=== PATIENT | male | born 1965 | race Caucasian/White ===

== ENCOUNTER 2021-11-28 20:53 | Inpatient (IN) ==
[2021-11-29 00:18] LABS: Estimated Average Glucose 128 mg/dl; Hemoglobin A1C 6.1 %
[2021-11-29] MEDS ORDERED: Ondansetron 4 MG/2 ML VIAL IVP PRN (00:26)
[2021-11-29] MEDS ORDERED: Naloxone 0.4 MG/ML INJ IVP PRN ×2 (00:26→16:38)
[2021-11-29 00:30] LABS: Alanine Aminotransferase 14 Units/L (7-52); Albumin 3.6 g/dL (3.5-5.7); Albumin/Globulin Ratio 1.1 (1.1-2.2); Alkaline Phosphatase 86 Units/L (34-104); Aspartate Amino Transferase 15 Units/L (13-39); BUN/Creatinine Ratio 20 (6-26); Bilirubin,Total 0.4 mg/dL (0.3-1.0); Blood Urea Nitrogen 16 mg/dL (6-20); Calcium 9.3 mg/dL (8.6-10.3); Carbon Dioxide 26 mEq/L (23-29); Chloride 101 mEq/L (98-107); Globulin 3.4 g/dL (2.4-3.5); Glucose 99 mg/dL (70-105); Osmolality,Calculated 291 (280-300); Potassium 3.9 mEq/L (3.5-5.1); Sodium 140 mEq/L (136-145)
[2021-11-29 00:32] LABS: Albumin 3.6 g/dL (3.5-5.7); Albumin/Globulin Ratio 1.1 (1.1-2.2); Bilirubin,Indirect 0.4 mg/dL (0.0-1.0); Bilirubin,Total 0.4 mg/dL (0.3-1.0); Chol/HDL Ratio 2.1 (0-4.9); Globulin 3.4 g/dL (2.4-3.5); Magnesium 1.9 mg/dL (1.6-2.6)
[2021-11-29 00:45] LABS: Basophils # 0.1 K/mcL (0.0-0.2); Basophils % 0.5 %; Eosinophils # 0.1 K/mcL (0.0-0.6); Eosinophils % 1.5 %; Hematocrit 38.6 % (37.5-50.1); Hemoglobin 12.5 g/dL (12.9-16.9); Immature Granulocytes % 0.2 % (0-4); Lymphocytes # 2.8 K/mcL (0.6-4.6); Lymphocytes % 29.6 %; Mean Corpuscular HGB Conc 32.4 g/dL (31.6-35.5); Mean Corpuscular Hemoglobin 27.1 pg (28.0-33.3); Mean Corpuscular Volume 83.5 fL (83.0-100.0); Mean Platelet Volume 9.2 fL (9.4-12.4); Monocytes # 0.7 K/mcL (0.0-1.3); Monocytes % 7.9 %; Neutrophils # 5.7 K/mcL (1.6-8.9); Platelet Count 214 K/mcL (140-400); Red Blood Count 4.62 M/mcL (4.19-5.50); Red Cell Distribution Width 15.9 % (11.5-14.5); Segmented Neutrophils % 60.3 %; White Blood Count 9.4 K/mcL (4.3-11.1)
[2021-11-29] MEDS: 0.9 % Sodium Chloride 1,000 ML IVC SCH ×2 (00:53→14:44)
[2021-11-29] MEDS ORDERED: Clindamycin 600 MG/50 ML 600 MG/50 ML IV.SOLN IVPB SCH (00:55)
[2021-11-29 04:46] LABS: Influenza A PCR Negative (Negative); Influenza B PCR Negative (Negative); Resp. Syncytial Virus PCR Negative (Negative)
[2021-11-29 04:47] LABS: SARS-CoV-2 by PCR (In House) Negative (Negative)
[2021-11-29] MEDS ORDERED: Vancomycin 1,250 MG/262.5 ML IV.SOLN IVPB ONE (06:07)
[2021-11-29] MEDS: Gabapentin 300 MG CAPSULE PO SCH ×3 (08:51→19:30)
[2021-11-29] MEDS: ALPRAZolam 1 MG TABLET PO PRN ×2 (08:53→19:30)
[2021-11-29] MEDS ORDERED: cefTRIAXone 2,000 MG in 0.9 % Sodium Chloride Mini Bag 100 ML IVPB SCH (09:00)
[2021-11-29] MEDS: Tiotropium 10 INH DOSE IH SCH (09:45)
[2021-11-29 13:56] LABS: Amphetamine Screen,Urine Negative ng/mL (Cutoff=1000); Barbiturate Screen,Urine Negative ng/mL (Cutoff=200); Benzodiazepines Screen,Urine Negative ng/mL (Cutoff=200); Cannabinoid Screen,Urine Negative ng/mL (Cutoff = 50); Cocaine Screen,Urine Negative ng/mL (Cutoff= 300); Opiate Screen,Urine Negative ng/mL (Cutoff=300); Phencyclidine Screen,Urine Negative ng/mL (Cutoff=25)
[2021-11-29] MEDS: *HR* OxyCODONE Immed Rel 5 MG TABLET PO PRN ×2 (17:03→23:21)
[2021-11-29] MEDS: Gabapentin 400 MG CAPSULE PO SCH (19:30)
[2021-11-30 05:37] LABS: Hematocrit 36.3 % (37.5-50.1); Hemoglobin 11.4 g/dL (12.9-16.9); Mean Corpuscular HGB Conc 31.4 g/dL (31.6-35.5); Mean Corpuscular Hemoglobin 26.8 pg (28.0-33.3); Mean Corpuscular Volume 85.4 fL (83.0-100.0); Mean Platelet Volume 9.2 fL (9.4-12.4); Platelet Count 185 K/mcL (140-400); Red Blood Count 4.25 M/mcL (4.19-5.50); Red Cell Distribution Width 15.9 % (11.5-14.5); White Blood Count 5.6 K/mcL (4.3-11.1)
[2021-11-30 06:00] LABS: % Iron Saturation 9 % (20-55); BUN/Creatinine Ratio 18 (6-26); Blood Urea Nitrogen 14 mg/dL (6-20); Calcium 8.8 mg/dL (8.6-10.3); Carbon Dioxide 27 mEq/L (23-29); Chloride 107 mEq/L (98-107); Glucose 111 mg/dL (70-105); Iron 33 mcg/dL (65-175); Osmolality,Calculated 291 (280-300); Potassium 3.8 mEq/L (3.5-5.1); Sodium 140 mEq/L (136-145); Transferrin 254 mg/dL (203-362)
[2021-11-30] MEDS: *HR* OxyCODONE Immed Rel 5 MG TABLET PO PRN ×3 (06:01→20:13)
[2021-11-30 06:13] LABS: Ferritin 17 ng/mL (20-250)
[2021-11-30 07:37] LABS: Hepatitis B Surface Antigen Nonreactive (Nonreactive)
[2021-11-30 08:07] LABS: Hepatitis B Core IgM Nonreactive (Nonreactive)
[2021-11-30 08:08] LABS: Hepatitis A Antibody IgM Nonreactive (Nonreactive)
[2021-11-30] MEDS: ALPRAZolam 1 MG TABLET PO PRN ×2 (08:20→16:21)
[2021-11-30] MEDS: Gabapentin 300 MG CAPSULE PO SCH (08:52)
[2021-11-30] MEDS: Gabapentin 400 MG CAPSULE PO SCH ×3 (08:52→20:14)
[2021-11-30] MEDS ORDERED: Patient Taking Own Medication 1 EACH OP SCH (09:00)
[2021-11-30] MEDS ORDERED: LAMIVUDI PO SCH (09:00)
[2021-11-30] MEDS ORDERED: ABACAVIR PO SCH (09:00)
[2021-11-30] MEDS ORDERED: DOLUTEGRAVIR PO SCH (09:00)
[2021-11-30] MEDS ORDERED: *HR* Dextrose 50 % in Water (Syg) 50 ML SYRINGE IVP ONE ×2 (09:48→10:00)
[2021-11-30] MEDS: Tiotropium 10 INH DOSE IH SCH (10:11)
[2021-11-30 10:44] LABS: Hepatitis C Virus Antibody Reactive (Nonreactive)
[2021-11-30] MEDS: Cyanocobalamin (B-12) 1,000 MCG/ML VIAL SQ SCH (13:22)
[2021-11-30] MEDS: Iron Sucrose Complex 250 MG in 0.9 % Sodium Chloride 250 ML IVPB SCH (13:22)
[2021-11-30] MEDS: cefTRIAXone 2,000 MG in 0.9 % Sodium Chloride 20 ML IVP SCH (13:23)
[2021-11-30] MEDS: LAMIVUDI PO SCH (16:09)
[2021-11-30] MEDS: DOLUTEGRAVIR PO SCH (16:09)
[2021-11-30] MEDS: ABACAVIR PO SCH (16:09)
[2021-11-30] MEDS: Nicotine 21 MG PATCH.TD24 TD SCH (18:38)
[2021-12-01] MEDS: ALPRAZolam 1 MG TABLET PO PRN ×3 (00:26→17:06)
[2021-12-01 04:43] LABS: Basophils % 0.7 %; Eosinophils # 0.1 K/mcL (0.0-0.6); Eosinophils % 3.2 %; Hematocrit 36.2 % (37.5-50.1); Hemoglobin 11.4 g/dL (12.9-16.9); Immature Granulocytes % 0.5 % (0-4); Lymphocytes # 1.4 K/mcL (0.6-4.6); Mean Corpuscular HGB Conc 31.5 g/dL (31.6-35.5); Mean Corpuscular Hemoglobin 26.5 pg (28.0-33.3); Mean Platelet Volume 9.5 fL (9.4-12.4); Monocytes # 0.4 K/mcL (0.0-1.3); Neutrophils # 2.1 K/mcL (1.6-8.9); Platelet Count 178 K/mcL (140-400); Red Blood Count 4.31 M/mcL (4.19-5.50); Red Cell Distribution Width 15.6 % (11.5-14.5); Segmented Neutrophils % 51.6 %; White Blood Count 4.1 K/mcL (4.3-11.1)
[2021-12-01 05:06] LABS: BUN/Creatinine Ratio 13 (6-26); Blood Urea Nitrogen 11 mg/dL (6-20); Calcium 9.4 mg/dL (8.6-10.3); Carbon Dioxide 28 mEq/L (23-29); Chloride 105 mEq/L (98-107); Glucose 98 mg/dL (70-105); Magnesium 1.9 mg/dL (1.6-2.6); Osmolality,Calculated 289 (280-300); Potassium 3.7 mEq/L (3.5-5.1); Sodium 140 mEq/L (136-145)
[2021-12-01] MEDS: *HR* OxyCODONE Immed Rel 5 MG TABLET PO PRN ×3 (07:42→23:00)
[2021-12-01] MEDS: Multivit/Ca/Min/Fe/FA 1 TAB TABLET PO SCH (08:34)
[2021-12-01] MEDS: Gabapentin 400 MG CAPSULE PO SCH ×3 (08:34→19:43)
[2021-12-01] MEDS: Cyanocobalamin (B-12) 1,000 MCG/ML VIAL SQ SCH (08:35)
[2021-12-01] MEDS: Nicotine 21 MG PATCH.TD24 TD SCH (08:35)
[2021-12-01] MEDS: Iron Sucrose Complex 250 MG in 0.9 % Sodium Chloride 250 ML IVPB SCH (08:35)
[2021-12-01] MEDS: cefTRIAXone 2,000 MG in 0.9 % Sodium Chloride 20 ML IVP SCH (08:36)
[2021-12-01] MEDS: Tiotropium 10 INH DOSE IH SCH (08:37)
[2021-12-01] MEDS: ABACAVIR PO SCH (08:45)
[2021-12-01] MEDS: DOLUTEGRAVIR PO SCH (08:45)
[2021-12-01] MEDS: LAMIVUDI PO SCH (08:45)
[2021-12-01] MEDS ORDERED: Bacitracin OINT PKT TP ONE (09:54)
[2021-12-01] MEDS ORDERED: Lidocaine/EPI 1:100k 1% 50 ML VIAL ONE (09:54)
[2021-12-01] MEDS ORDERED: Ondansetron 4 MG/2 ML VIAL ONE (09:57)
[2021-12-01] MEDS ORDERED: *HR* FentaNYL (PF) 100 MCG/2 ML VIAL ONE (09:57)
[2021-12-01] MEDS ORDERED: *HR* Midazolam HCl 2 MG/2 ML VIAL ONE (09:58)
[2021-12-01] MEDS ORDERED: Lidocaine -MPF 2% 2 ML VIAL ONE (09:58)
[2021-12-01] MEDS ORDERED: *HR* Propofol 200 MG/20 ML VIAL IVP ONE (09:58)
[2021-12-01] MEDS ORDERED: Ringers Solution, Lactated 1,000 ML IVC SCH (10:00)
[2021-12-01] MEDS: Atropine Sulfate 1% 40 DROP/2 ML BOTTLE RIGHT EYE SCH (17:06)
[2021-12-01] MEDS ORDERED: Acetaminophen IV 1,000 MG/100 ML BAG IVPB ONE (18:15)
[2021-12-01] MEDS: Lactobacillus 1 EACH CAP.SPRINK PO SCH (19:43)
[2021-12-01] MEDS ORDERED: *HR* HYDROmorphone (PF) 1 MG/ML SYRINGE IVP ONE ×2 (19:59→21:40)
[2021-12-02] MEDS ORDERED: Ketorolac 30 MG/ML VIAL IVP ONE (02:56)
[2021-12-02] MEDS: ALPRAZolam 1 MG TABLET PO PRN ×2 (03:16→15:29)
[2021-12-02] MEDS ORDERED: *HR* HYDROmorphone (PF) 1 MG/ML SYRINGE IVP ONE (04:04)
[2021-12-02] MEDS: *HR* OxyCODONE Immed Rel 5 MG TABLET PO PRN ×2 (06:58→14:01)
[2021-12-02 07:23] LABS: Basophils # 0.1 K/mcL (0.0-0.2); Basophils % 0.9 %; Eosinophils # 0.2 K/mcL (0.0-0.6); Hematocrit 35.8 % (37.5-50.1); Hemoglobin 11.4 g/dL (12.9-16.9); Immature Granulocytes % 0.4 % (0-4); Lymphocytes # 2.1 K/mcL (0.6-4.6); Lymphocytes % 39.1 %; Mean Corpuscular HGB Conc 31.8 g/dL (31.6-35.5); Mean Corpuscular Hemoglobin 26.8 pg (28.0-33.3); Mean Corpuscular Volume 84.2 fL (83.0-100.0); Mean Platelet Volume 9.4 fL (9.4-12.4); Monocytes # 0.5 K/mcL (0.0-1.3); Monocytes % 9.3 %; Neutrophils # 2.5 K/mcL (1.6-8.9); Platelet Count 186 K/mcL (140-400); Red Blood Count 4.25 M/mcL (4.19-5.50); Red Cell Distribution Width 15.6 % (11.5-14.5); Segmented Neutrophils % 47.3 %; White Blood Count 5.3 K/mcL (4.3-11.1)
[2021-12-02 07:43] LABS: BUN/Creatinine Ratio 10 (6-26); Blood Urea Nitrogen 10 mg/dL (6-20); Calcium 9.4 mg/dL (8.6-10.3); Carbon Dioxide 31 mEq/L (23-29); Chloride 102 mEq/L (98-107); Glucose 118 mg/dL (70-105); Magnesium 1.9 mg/dL (1.6-2.6); Osmolality,Calculated 284 (280-300); Potassium 3.8 mEq/L (3.5-5.1); Sodium 137 mEq/L (136-145)
[2021-12-02] MEDS: Tiotropium 10 INH DOSE IH SCH (07:49)
[2021-12-02 08:00] VITALS: BP 92/75; PULSE 84; TEMP 98.1; O2SAT 96
[2021-12-02] MEDS: cefTRIAXone 2,000 MG in 0.9 % Sodium Chloride 20 ML IVP SCH (08:37)
[2021-12-02] MEDS: Gabapentin 400 MG CAPSULE PO SCH (08:38)
[2021-12-02] MEDS: Lactobacillus 1 EACH CAP.SPRINK PO SCH (08:38)
[2021-12-02] MEDS: Multivit/Ca/Min/Fe/FA 1 TAB TABLET PO SCH (08:38)
[2021-12-02] MEDS: LAMIVUDI PO SCH (08:39)
[2021-12-02] MEDS: DOLUTEGRAVIR PO SCH (08:39)
[2021-12-02] MEDS: Cyanocobalamin (B-12) 1,000 MCG/ML VIAL SQ SCH (08:39)
[2021-12-02] MEDS: ABACAVIR PO SCH (08:39)
[2021-12-02] MEDS: Nicotine 21 MG PATCH.TD24 TD SCH (08:40)
[2021-12-02] MEDS: Atropine Sulfate 1% 40 DROP/2 ML BOTTLE RIGHT EYE SCH (08:42)
[2021-12-02] MEDS: Iron Sucrose Complex 250 MG in 0.9 % Sodium Chloride 250 ML IVPB SCH (13:54)
[2021-12-05 09:52] LABS: HIV-1 Viral Load Interp NOT DETECTED (Not Detected)
== END 2021-12-02 18:47 | disposition home or self-care (01) | DRG 364 ==
LOC: 4WAOSI → SUATTDRO 22:35 → 4WAOSI 12-01 16:40
PROVIDERS: ADMIT Student in an Organized Health Care Education/Training Program; ATTEND Pharmacist